=== PATIENT | male | born 1995 | race Caucasian/White ===

== ENCOUNTER 2016-10-15 12:19 | Inpatient (IN) | payer OTHER ==
[2016-10-15 13:42] VITALS: BMI 26.6
--- NOTE | 2016-10-15 14:09 | HP ---
COWS - Scale Resting Pulse: 0= [place] 80 or Below Sweatin= Chills/Flushing Restless Observation: 1= Difficult to Sit Still Pupil Size: 0= Normal to Room Light Bone or Joint Aches: 1= Mild Discomfort Runny Nose/ Eye Tearin= Nasal Congestion GI Upset > 30mins: 1= Stomach Cramp Tremor Observation: 1= Tremor [place], Not Seen Yawning Observation: 1= 1-2x During Session Anxiety or Irritability: 1=Feels Anxious/Irritable Goose Flesh Skin: 0=Smooth Skin COWS Score: 8 Admission ROS S - HPI Chief Complaint: I want to stop using heroin Allergies/Adverse Reactions: Allergies Allergy/AdvReac Type Severity Reaction Status Date / Time No Known Allergies Allergy Verified 04/18/16 14:04 History of Present Illness: 21 yo gentleman here for detox from heroin - previously here for detox and left AMA three times - discussed same with him - 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 No seizures or black outs. Exam Limitations: Clinical Condition - Ebola screening Have you traveled outside of the country in the last 21 days: No (N) Have you had contact with anyone from an Ebola affected area: No Have you been sick,other than usual withdrawal symptoms: No Do you have a fever: No - Review of Systems Constitutional: Loss of Appetite, Night Sweats, Changes in sleep, Weakness EENT: reports: Nose Congestion Respiratory: reports: No Symptoms reported Cardiac: reports: No Symptoms Reported GI: reports: Nausea, Poor Appetite, Indigestion : reports: Dysuria Musculoskeletal: reports: Back Pain, Muscle Pain Integumentary: reports: No Symptoms Reported Neuro: reports: Headache Endocrine: reports: No Symptoms Reported Hematology: reports: No Symptoms Reported Psychiatric: reports: Judgement Intact, Mood/Affect Appropiate, Orientated x3, Anxious Other Systems: Reviewed and Negative Patient History - Patient Medical History Hx Anemia: No Hx Asthma: No Hx Chronic Obstructive Pulmonary Disease (COPD): No Hx Cancer: No Hx Cardiac Disorders: No Hx Congestive Heart Failure: No Hx Hypertension: No Hx Hypercholesterolemia: No Hx Pacemaker: No HX Cerebrovascular Accident: No Hx Seizures: No Hx Dementia: No Hx Diabetes: No Hx Gastrointestinal Disorders: No Hx Liver Disease: No Hx Genitourinary Disorders: No Hx Sexually Transmitted Disorders: No Hx Renal Disease (ESRD): No Hx Thyroid Disease: No Hx Human Immunodeficiency Virus (HIV): (never been tested) Hx Hepatitis C: No Hx Depression: No Hx Suicide Attempt: No (DENIES) Hx Bipolar Disorder: No Hx Schizophrenia: No - Patient Surgical History Past Surgical History: No - PPD History Date: 12/15/15 Results: 0 mm PPD to be Administered?: No - Reproductive History Patient is a Female of Child Bearing Age (11 -55 yrs old): No (male) - Smoking Cessation Smoking history: Former smoker Have you smoked in the past 12 months: Yes Aproximately how many cigarettes per day: 5 Cigars Per Day: 0 Hx Chewing Tobacco Use: No Initiated information on smoking cessation: No - Substance & Tx. History Hx Alcohol Use: Yes Hx Substance Use: Yes Substance Use Type: Alcohol, Heroin Hx Substance Use Treatment: Yes (detox, rehab) - Substances Abused Alcohol Route: Oral Frequency: 1-2 times per week Amount used: eight 8 oz beers Age of first use: 15 Date of Last Use: 10/09/16 Heroin Route: Injection Frequency: Daily Amount used: 10 bags Age of first use: 16 Date of Last Use: 10/15/16 Family Disease History - Family Disease History Family Disease History: Other: Grandparent (alcohol,), Mother (leukemia, ) Admission Physical Exam S - Vital Signs Vital Signs: Vital Signs - 24 hr 10/15/16 13:36 Temperature 95.7 F L Pulse Rate 75 Respiratory 16 Rate Blood Pressure 98/57 - Physical General Appearance: Yes: Nourished, Appropriately Dressed, Mild Distress, Anxious HEENTM: Yes: Hearing grossly Normal, Normal ENT Inspection, Normocephalic, Normal Voice, Pharynx Normal Respiratory: Yes: Normal Breath Sounds, No Respiratory Distress Neck: Yes: No masses,lesions,Nodules, Trachea in good position Breast: Yes: Breast Exam Deferred Cardiology: Yes: Regular Rhythm, Regular Rate Abdominal: Yes: Soft Genitourinary: Yes: Hesitency Back: Yes: Normal Inspection Musculoskeletal: Yes: full range of Motion, Gait Steady Extremities: Yes: Normal Inspection, Normal Range of Motion Neurological: Yes: Fully Oriented, Alert, Normal Mood/Affect, Normal Response Integumentary: Yes: Normal Color, Warm, Track [place] Lymphatic: Yes: Within Normal Limits - Diagnostic (1) Opioid dependence with withdrawal Current Visit: Yes Status: Chronic Cleared for Admission [facility] - Detox or Rehab [facility] Level of Care: Medically Managed Detox Regimen/Protocol: Methadone [facility] Breath Alcohol Content Breath Alcohol Content: 0 Urine Drug Screen - Results Drug Screen Negative: No Urine Drug Screen Results: OPI-Opiates, OXY-Oxycodone
[2016-10-15] MEDS ORDERED: ACETAMINOPHEN 325 MG TABLET (FP) PO PRN (14:15)
[2016-10-15] MEDS ORDERED: MAGNESIUM CITRATE 300 ML BOTTLE PO PRN (14:15)
[2016-10-15] MEDS ORDERED: MAG HYDROX/AL HYDROX/SIMETH 30 ML UNIT-DOSE CUP PO PRN (14:15)
[2016-10-15] MEDS ORDERED: METHADONE HCL 10 MG TABLET (FOR DETOX USE ONLY) PO ONE ×3 (14:15→23:00)
[2016-10-15] MEDS ORDERED: LOPERAMIDE HCL 2 MG CAPSULE PO PRN (14:15)
[2016-10-15] MEDS ORDERED: P-EPHED 60MG/TRIPROLIDI 2.5MG TABLET PO PRN (14:15)
[2016-10-15] MEDS ORDERED: MAGNESIUM HYDROX 2400MG/30ML ORAL SUSPENSION 30 ML CUP PO PRN (14:15)
[2016-10-15] MEDS ORDERED: guaiFENesin/D-METHORPHAN HB 10 ML UNIT-DOSE CUPS PO PRN (14:15)
[2016-10-15] MEDS ORDERED: MENTHOL/PHENOL 1 EACH UD MM PRN (14:15)
[2016-10-15] MEDS ORDERED: IBUPROFEN 400 MG TABLET (FP) PO PRN (14:15)
[2016-10-15] MEDS: diazePAM 5 MG TABLET PO PRN (19:59)
[2016-10-15] MEDS: diphenhydrAMINE HCL 50 MG CAPSULE PO PRN (22:32)
[2016-10-15] MEDS: THIAMINE HCL 100 MG TABLET (FP) PO SCH (22:32)
[2016-10-16] MEDS: diazePAM 5 MG TABLET PO PRN ×3 (06:10→21:47)
[2016-10-16 09:21] LABS: MCH 28.3 pg (25.7-33.7); MEAN CELL VOLUME 83.3 fl (80-96); MEAN PLT VOLUME 8.4 fl (7.5-11.1); PLATELET COUNT 243 K/MM3 (134-434); RDW 13.2 % (11.9-15.9)
[2016-10-16 09:25] LABS: ALBUMIN 3.4 g/dl (3.4-5.0); ANION GAP 6 (8-16); CALCIUM 8.8 mg/dL (8.5-10.1); CO2 30 mmol/L (21-32); CREATININE 0.6 mg/dL (0.7-1.3); GLUCOSE,RANDOM 82 mg/dL (74-106); SGOT/AST 98 U/L (15-37); SGPT/ALT 134 U/L (12-78)
[2016-10-16 09:26] LABS: ALK PHOS 115 U/L (45-117); BILIRUBIN,TOTAL 0.4 mg/dL (0.2-1.0); TOT PROT 6.9 g/dl (6.4-8.2)
[2016-10-16] MEDS ORDERED: METHADONE HCL 10 MG TABLET (FOR DETOX USE ONLY) PO ONE (10:00)
[2016-10-16] MEDS: PRENATAL VITAMINS W/ FOLIC ACID TABLET (FP) PO SCH (11:16)
--- NOTE | 2016-10-16 12:16 | PN ---
[facility] COWS - Scale Resting Pulse: 1= [place] 81-100 Sweatin=Flushed/Facial Moisture Restless Observation: 3= Extraneous Movement Pupil Size: 1= Pupils >than Normal Bone or Joint Aches: 2= Severe Diffuse Aches Runny Nose/ Eye Tearin= Runny Nose/Eyes GI Upset > 30mins: 2= Nausea/Diarrhea Tremor Observation of Outstretched Hands: 2= Slight Tremor Visible Yawning Observation: 1= 1-2x During Session Anxiety or Irritability: 2=Irritable/Anxious Goose Flesh Skin: 0=Smooth Skin COWS Score: 18 BHS Progress Note (SOAP) Subjective: ALERT,IRRITABLE,ANXIOUS,INTERRUPTED SLEEP,TREMOR,PAIN IN THE BODY AND BACK Objective: 10/16/16 12:15 Vital Signs Temperature 97.3 F L 10/16/16 10:00 Pulse Rate 81 10/16/16 10:00 Respiratory Rate 16 10/16/16 10:00 Blood Pressure 115/61 10/16/16 10:00 O2 Sat by Pulse Oximetry (%) EKG NSR,NORMAL ECG Laboratory Last Values WBC 4.0 K/mm3 (4.0-10.0) 10/16/16 07:20 RBC 4.64 M/mm3 (4.00-5.60) 10/16/16 07:20 Hgb 13.2 GM/dL (11.7-16.9) 10/16/16 07:20 Hct 38.7 % (35.4-49) 10/16/16 07:20 MCV 83.3 fl (80-96) 10/16/16 07:20 MCHC 34.0 g/dl (32.0-35.9) 10/16/16 07:20 RDW 13.2 % (11.9-15.9) 10/16/16 07:20 Plt Count 243 K/MM3 (134-434) D 10/16/16 07:20 MPV 8.4 fl (7.5-11.1) D 10/16/16 07:20 Sodium 138 mmol/L (136-145) 10/16/16 07:20 Potassium 4.4 mmol/L (3.5-5.1) 10/16/16 07:20 Chloride 102 mmol/L (98-107) 10/16/16 07:20 Carbon Dioxide 30 mmol/L (21-32) 10/16/16 07:20 Anion Gap 6 (8-16) L 10/16/16 07:20 BUN 10 mg/dL (7-18) D 10/16/16 07:20 Creatinine 0.6 mg/dL (0.7-1.3) L D 10/16/16 07:20 Creat Clearance w eGFR > 60 (>60) 10/16/16 07:20 Random Glucose 82 mg/dL (74-106) D 10/16/16 07:20 Calcium 8.8 mg/dL (8.5-10.1) 10/16/16 07:20 Total Bilirubin 0.4 mg/dL (0.2-1.0) D 10/16/16 07:20 AST 98 U/L (15-37) H D 10/16/16 07:20 ALT 134 U/L (12-78) H D 10/16/16 07:20 Alkaline Phosphatase 115 U/L (45-117) D 10/16/16 07:20 Total Protein 6.9 g/dl (6.4-8.2) 10/16/16 07:20 Albumin 3.4 g/dl (3.4-5.0) 10/16/16 07:20 RPR Titer Nonreactive (NONREACTIVE) 10/16/16 07:20 Assessment: 10/16/16 12:16 WITHDRAWAL SYMPTOM Plan: CONTINUE DETOX
--- NOTE | 2016-10-16 14:40 | EKG ---
Test Reason : Blood Pressure : / mmHG Vent. Rate : 072 BPM Atrial Rate : 072 BPM P-R Int : 164 ms QRS Dur : 096 ms QT Int : 366 ms P-R-T Axes : 057 047 025 degrees QTc Int : 400 ms NORMAL SINUS RHYTHM NORMAL ECG NO PREVIOUS ECGS AVAILABLE Confirmed by LUDMILA PALACIOS MD ([id number]) on 10/16/2016 2:39:45 PM Referred By: Confirmed By:LUDMILA PALACIOS MD
[2016-10-16] MEDS: diphenhydrAMINE HCL 50 MG CAPSULE PO PRN (21:47)
[2016-10-16] MEDS: THIAMINE HCL 100 MG TABLET (FP) PO SCH (21:47)
[2016-10-17] MEDS ORDERED: METHADONE HCL 5 MG TABLET (FOR DETOX USE ONLY) PO ONE (10:00)
[2016-10-17] MEDS: PRENATAL VITAMINS W/ FOLIC ACID TABLET (FP) PO SCH (10:47)
[2016-10-17] MEDS: diazePAM 5 MG TABLET PO PRN (10:47)
--- NOTE | 2016-10-17 11:02 | CONSULT ---
[facility] Psychiatric Consult - Data Date of interview: 10/17/16 Admission source: [facility] Identifying data: This is a 21 year old male who is single employed and domiciled, residing with his 80 year old grandfather. Substance Abuse History: Patient reports using heroin 10-12 bags a day, the longest period of abstinence 8 months. Medical History: reports a good physical health. Psychiatric History: no history of psychiatric treatment, states he just feels very anxious in am and feeling well during day time, he currently on vistaril PRN and thinks it's helpfull. Physical/Sexual Abuse/Trauma History: Denies history of sexual, physical and verbal abuse. 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 Mental Status Exam - Mental Status Exam Alert and Oriented to: Time, Place Cognitive Function: Good Patient Appearance: Well Groomed Mood: Anxious Affect: Appropriate, Mood Congruent Patient Behavior: Appropriate, Cooperative Speech Pattern: Clear, Appropriate Voice Loudness: Normal Thought Process: Intact, Goal Oriented Thought Disorder: Not Present Hallucinations: Denies Suicidal Ideation: Denies Homicidal Ideation: Denies Insight/Judgement: Fair Sleep: Fair Appetite: Fair Muscle strength/Tone: Normal Gait/Station: Normal Psychiatric Findings - Problem List ([place] 1, 2,3) (1) Opioid dependence Current Visit: Yes Status: Acute (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
--- NOTE | 2016-10-17 11:36 | PN ---
[facility] COWS - Scale Resting Pulse: 2= [place] 101-120 Sweatin= Chills/Flushing Restless Observation: 3= Extraneous Movement Pupil Size: 1= Pupils >than Normal Bone or Joint Aches: 2= Severe Diffuse Aches Runny Nose/ Eye Tearin= Runny Nose/Eyes GI Upset > 30mins: 2= Nausea/Diarrhea Tremor Observation of Outstretched Hands: 2= Slight Tremor Visible Yawning Observation: 1= 1-2x During Session Anxiety or Irritability: 2=Irritable/Anxious Goose Flesh Skin: 0=Smooth Skin COWS Score: 18 BHS Progress Note (SOAP) Subjective: ALERT,IRRITABLE,ANXIOUS,,INTERRUPTED SLEEP,TREMOR Objective: 10/17/16 12:10 Vital Signs Temperature 98.1 F 10/17/16 09:56 Pulse Rate 101 H 10/17/16 09:56 Respiratory Rate 16 10/17/16 09:56 Blood Pressure 140/69 10/17/16 09:56 O2 Sat by Pulse Oximetry (%) Laboratory Last Values WBC 4.0 K/mm3 (4.0-10.0) 10/16/16 07:20 RBC 4.64 M/mm3 (4.00-5.60) 10/16/16 07:20 Hgb 13.2 GM/dL (11.7-16.9) 10/16/16 07:20 Hct 38.7 % (35.4-49) 10/16/16 07:20 MCV 83.3 fl (80-96) 10/16/16 07:20 MCHC 34.0 g/dl (32.0-35.9) 10/16/16 07:20 RDW 13.2 % (11.9-15.9) 10/16/16 07:20 Plt Count 243 K/MM3 (134-434) D 10/16/16 07:20 MPV 8.4 fl (7.5-11.1) D 10/16/16 07:20 Sodium 138 mmol/L (136-145) 10/16/16 07:20 Potassium 4.4 mmol/L (3.5-5.1) 10/16/16 07:20 Chloride 102 mmol/L (98-107) 10/16/16 07:20 Carbon Dioxide 30 mmol/L (21-32) 10/16/16 07:20 Anion Gap 6 (8-16) L 10/16/16 07:20 BUN 10 mg/dL (7-18) D 10/16/16 07:20 Creatinine 0.6 mg/dL (0.7-1.3) L D 10/16/16 07:20 Creat Clearance w eGFR > 60 (>60) 10/16/16 07:20 Random Glucose 82 mg/dL (74-106) D 10/16/16 07:20 Calcium 8.8 mg/dL (8.5-10.1) 10/16/16 07:20 Total Bilirubin 0.4 mg/dL (0.2-1.0) D 10/16/16 07:20 AST 98 U/L (15-37) H D 10/16/16 07:20 ALT 134 U/L (12-78) H D 10/16/16 07:20 Alkaline Phosphatase 115 U/L (45-117) D 10/16/16 07:20 Total Protein 6.9 g/dl (6.4-8.2) 10/16/16 07:20 Albumin 3.4 g/dl (3.4-5.0) 10/16/16 07:20 RPR Titer Nonreactive (NONREACTIVE) 10/16/16 07:20 Assessment: 10/17/16 12:11 WITHDRAWAL SYMPTOM Plan: CONTINUE DETOX
[2016-10-17 14:05] VITALS: BP 143/82; PULSE 107; TEMP 98.6
--- NOTE | 2016-10-17 14:32 | PN ---
[facility] Progress Note Note: PATIENT DID NOT WANT TO COMPLETE TREATMENT DUE TO PERSONAL REASON,SIGNED RELEASE AMA,STATED HE HAS TO GO TO WORK
--- NOTE | 2016-10-17 14:34 | DS ---
S Detox Discharge Summary Admission Date: 10/15/16 Discharge Date: 10/17/16 - History Present History: Opioid Dependence Pertinent Past History: PATIENT DID NOT WANT TO COMPLETE TREATMENT SIGNED RELEASE AMA DID NOT WANT TO WAIT STATED HE HAS TO GO TO WORK - Physical Exam Results Vital Signs: Vital Signs Temperature 98.6 F 10/17/16 14:04 Pulse Rate 107 H 10/17/16 14:04 Respiratory Rate 16 10/17/16 14:04 Blood Pressure 143/82 10/17/16 14:04 O2 Sat by Pulse Oximetry (%) Pertinent Admission Physical Exam Findings: WITHDRAWAL SYMPTOM - Medication Discharge Medications: Ambulatory Orders NK [No Known Home Medication] 11/22/14 - AMA Did Patient Leave Against Medical Advice: Yes
[2016-10-18] MEDS ORDERED: METHADONE HCL 10 MG TABLET (FOR DETOX USE ONLY) PO ONE (10:00)
[2016-10-18] MEDS ORDERED: METHADONE HCL 5 MG TABLET (FOR DETOX USE ONLY) PO ONE (10:00)
[2016-10-19] MEDS ORDERED: METHADONE HCL 5 MG TABLET (FOR DETOX USE ONLY) PO ONE (06:00)
[2016-10-19] MEDS ORDERED: METHADONE HCL 10 MG TABLET (FOR DETOX USE ONLY) PO ONE (10:00)
[2016-10-20 00:06] LABS: HCV LOG 10 5.474 (.)
[2016-10-20] MEDS ORDERED: METHADONE HCL 5 MG TABLET (FOR DETOX USE ONLY) PO ONE (06:00)
== END 2016-10-17 14:12 | disposition left against medical advice (07) | DRG 770 ==
LOC: YASAS 12:19 → Y6N 14:15
PROVIDERS: ADMIT Internal Medicine; ATTEND Internal Medicine
PROC: HZ2ZZZZ Detoxification Services for Substance Abuse Treatment (ICD-10-PCS; principal; 2016-10-15)
DX: F11.23 Opioid dependence with withdrawal (principal); F11.288 Opioid dependence with other opioid-induced disorder; Z87.891 Personal history of nicotine dependence
CPT/HCPCS: 36415; 80053; 85027; 86593; 86803; 87522; 93005; 93010

== ENCOUNTER 2024-04-15 15:26 | Inpatient (IN) | payer OTHER ==
[2024-04-15 18:10] VITALS: BMI 21.9
[2024-04-15] MEDS ORDERED: MAGNESIUM HYDROX 2400MG/30ML ORAL SUSPENSION 30 ML CUP PO PRN (19:25)
[2024-04-15] MEDS ORDERED: BISMUTH SUBSALICYLATE 524 MG/30 ML PO PRN (19:25)
[2024-04-15] MEDS ORDERED: DICYCLOMINE HCL 10 MG CAPSULE PO PRN (19:25)
[2024-04-15] MEDS ORDERED: guaiFENesin 600 MG TABLET.ER (FP) PO PRN (19:25)
[2024-04-15] MEDS ORDERED: LOPERAMIDE HCL 2 MG CAPSULE PO PRN (19:25)
[2024-04-15] MEDS ORDERED: ACETAMINOPHEN 325 MG TABLET (FP) PO PRN (19:25)
[2024-04-15] MEDS ORDERED: ONDANSETRON *ODT* 4 MG TABLET SL PRN (19:25)
[2024-04-15] MEDS ORDERED: BENZOCAINE/MENTHOL (CHLORASEPTIC ) LOZENGE MM PRN (19:25)
[2024-04-15] MEDS ORDERED: methaDONE HCL 10 MG TABLET (FOR DETOX USE ONLY) ONE (20:38)
[2024-04-15] MEDS: methaDONE HCL 10 MG TABLET (FOR DETOX USE ONLY) PO ONE (20:59)
[2024-04-15] MEDS ORDERED: MELATONIN 5 MG TABLETS ONE (21:36)
[2024-04-15] MEDS: MELATONIN 5 MG TABLETS PO SCH (21:47)
[2024-04-15] MEDS: hydrOXYzine PAMOATE 25 MG CAPSULE (FP) PO PRN (22:41)
[2024-04-15] MEDS: METHOCARBAMOL 500 MG TABLET PO PRN (22:41)
[2024-04-16] MEDS: PRENATAL VITAMINS W/ FOLIC ACID TABLET (FP) PO SCH (09:35)
[2024-04-16 11:53] LABS: POTASSIUM 4.2 mmol/L (3.5-5.1)
[2024-04-16 11:55] LABS: ALBUMIN 4.2 g/dl (3.4-5.0); BLOOD UREA NITROGEN 11.3 mg/dL (7-18); CALCIUM 9.4 mg/dL (8.5-10.1)
[2024-04-16 11:59] LABS: CREATININE 0.7 mg/dL (0.55-1.3)
[2024-04-16 12:00] LABS: TOT PROT 7.7 g/dl (6.4-8.2)
[2024-04-16 12:01] LABS: BILIRUBIN,TOTAL 0.8 mg/dL (0.2-1)
[2024-04-16 12:06] LABS: HEMATOCRIT 41.4 % (35.4-49); HEMOGLOBIN 13.8 GM/dL (11.7-16.9); MCH 28.8 pg (25.7-33.7); MCHC 33.4 g/dl (32.0-35.9); MEAN CELL VOLUME 86.2 fl (80-96); MEAN PLT VOLUME 9.8 fl (7.5-11.1); PLATELET COUNT 179 10^3/uL (134-434); RBC 4.79 M/mm3 (4.00-5.60); RDW 12.8 % (11.9-15.9); WHITE BLOOD COUNT 4.8 K/mm3 (4.0-10.0)
[2024-04-16] MEDS: cloNIDine HCL 0.1 MG TABLET PO PRN (17:13)
[2024-04-16 20:41] VITALS: RESP 16
[2024-04-17] MEDS: IBUPROFEN 400 MG TABLET (FP) PO PRN (05:23)
[2024-04-17] MEDS: methaDONE HCL 10 MG TABLET (FOR DETOX USE ONLY) PO ONE (09:33)
[2024-04-17 12:02] VITALS: PULSE 100; TEMP 98.8
[2024-04-17 14:19] VITALS: BP 148/99
[2024-04-19] MEDS ORDERED: methaDONE HCL 10 MG TABLET (FOR DETOX USE ONLY) PO ONE (10:00)
== END 2024-04-17 14:08 | disposition home or self-care (01) | DRG 773 ==
LOC: YASAS 15:26 → Y3N 20:50
PROVIDERS: ADMIT Allergy & Immunology; ATTEND Surgery
PROC: HZ2ZZZZ Detoxification Services for Substance Abuse Treatment (ICD-10-PCS; principal; 2024-04-15)
DX: F11.23 Opioid dependence with withdrawal (principal); F12.20 Cannabis dependence, uncomplicated; F10.24 Alcohol dependence with alcohol-induced mood disorder; F19.24 Other psychoactive substance dependence with psychoactive substance-induced mood disorder; F41.9 Anxiety disorder, unspecified
CPT/HCPCS: 36415; 80053; 80305; 80307; 85027; 86780; 93005; 93010